=== PATIENT | male | born 1995 | race Caucasian/White ===

== ENCOUNTER → 2020-03-29 | Outpatient (CLI) | payer OTHER ==
[2020-03-29 11:27] LABS: SPERM CONCENTRATION 0.5 X10^6/mL (>12.0); TOTAL SPERM COUNT 1.7 X10^6 (>33.0)
[2020-03-29 11:28] LABS: SPERM PROGRESSION 3
== END ==
LOC: LAB 10:16
DX: N46.9 Male infertility, unspecified (principal)
CPT/HCPCS: 89321